=== PATIENT | male | born 1930 | race African-American/Black ===

== ENCOUNTER 2018-04-09 08:25 | Inpatient (IN) | payer MEDICARE ==
[~2018-04-09] VITALS: Ht 177.8 cm; Wt 83.1 kg
[2018-04-09] VITALS (23 sets, daily range): BP systolic 72–120; BP diastolic 28–50
[2018-04-09] MEDS ORDERED: FINA1TAB18 PO (08:33)
[2018-04-09] MEDS ORDERED: AMLO2.5T45 PO (08:33)
[2018-04-09] MEDS ORDERED: ATOR10TA69 PO (08:33)
[2018-04-09] MEDS ORDERED: LEVO25TA7 PO (08:33)
[2018-04-09] MEDS ORDERED: LABE100T5 PO (08:33)
[2018-04-09] MEDS ORDERED: SODIUM CHLORIDE 0.9% 500 ML IV ONE ×2 (09:08→10:14)
[2018-04-09] MEDS ORDERED: VANCOMYCIN 1 G PREMIX 200 ML IV ONE (11:00)
[2018-04-09] MEDS ORDERED: PIPERACILLIN/TAZ 3.375G PREMIX 50 ML IV ONE (11:00)
[2018-04-09 11:26] LABS: HEMOGLOBIN. 8.8 g/dL (14.0-18.0); MEAN CORPUSCULAR HEMOGLOBIN 30.2 pg (28.0-32.0); MEAN CORPUSCULAR VOLUME 95.9 fL (80.0-94.0); MEAN PLATELET VOLUME 8.1 fl (7.4-10.4); PLATELET 355 x1000/uL (130-400); RED BLOOD CELL COUNT 2.92 mill/uL (4.7-6.1); RED CELL DISTRIBUTION WIDTH 21.9 % (11.6-14.6)
[2018-04-09 11:37] LABS: CHLORIDE 99 mEq/L (98-107)
[2018-04-09 12:13] LABS: PLATELET ESTIMATE NORMAL
[2018-04-09] MEDS ORDERED: NOREPINEPHRINE 4 MG in DEXT 5% WATER 246 ML IV ONE (13:15)
[2018-04-09] MEDS ORDERED: NOREPINEPHRINE 4 MG in DEXT 5% WATER 246 ML IV NR (13:30)
[2018-04-09] MEDS: PANTOPRAZOLE SODIUM 40 MG/VIAL IV SCH (17:21)
[2018-04-09] MEDS ORDERED: PIPERACILLIN/TAZ 3.375G PREMIX 50 ML IV SCH (21:15)
[2018-04-09] MEDS: DEXT 5% WATER 500 ML IV SCH (21:32)
[2018-04-09] MEDS: NOREPINEPHRINE 32 MG in DEXT 5% WATER 468 ML IV PRN (22:18)
[2018-04-09] MEDS: PIPERACILLIN/TAZ 2.25G PREMIX 50 ML IV SCH (23:45)
[2018-04-09] MEDS: MORPHINE SULFATE 4 MG/ML CPJ (NOT FOR IM USE) IV PRN (23:55)
[2018-04-10] VITALS (83 sets, daily range): BP systolic 78–171; BP diastolic 27–124
[2018-04-10] MEDS: NOREPINEPHRINE 32 MG in DEXT 5% WATER 468 ML IV PRN ×3 (01:51→22:46)
[2018-04-10] MEDS: MORPHINE SULFATE 4 MG/ML CPJ (NOT FOR IM USE) IV PRN ×4 (05:00→22:48)
[2018-04-10 07:49] LABS: HEMATOCRIT. 24.2 % (42.0-52.0); HEMOGLOBIN. 7.8 g/dL (14.0-18.0); MEAN CORPUSCULAR HEMOGLOBIN 30.5 pg (28.0-32.0); MEAN CORPUSCULAR VOLUME 94.8 fL (80.0-94.0); MEAN PLATELET VOLUME 8.3 fl (7.4-10.4); PLATELET 338 x1000/uL (130-400); RED BLOOD CELL COUNT 2.56 mill/uL (4.7-6.1); RED CELL DISTRIBUTION WIDTH 21.5 % (11.6-14.6)
[2018-04-10] MEDS: LEVOTHYROXINE SODIUM 25MCG TABLET PO SCH (08:53)
[2018-04-10] MEDS: PANTOPRAZOLE SODIUM 40 MG/VIAL IV SCH (08:53)
[2018-04-10] MEDS ORDERED: LIDOCAINE HCL/EPINEPHRINE 1%-EPI 1:100,000 20 ML VIAL INFIL NR (09:15)
[2018-04-10 09:54] LABS: PLATELET ESTIMATE NORMAL
[2018-04-10] MEDS ORDERED: VANCOMYCIN 500 MG PREMIX 100 ML IV SCH (10:00)
[2018-04-10] MEDS: PIPERACILLIN/TAZ 2.25G PREMIX 50 ML IV SCH ×2 (10:41→23:15)
[2018-04-10] MEDS: DEXT 5% WATER 500 ML IV SCH (10:48)
[2018-04-10] MEDS: BLOOD SUGAR DIAGNOSTIC STRIP TEST SCH ×3 (12:50→21:00)
[2018-04-10] MEDS: INSULIN LISPRO 100 UNITS/ML SUBCUT SCH ×3 (13:20→21:00)
[2018-04-11] VITALS (74 sets, daily range): BP systolic 83–145; BP diastolic 27–95
[2018-04-11] MEDS: DEXT 5% WATER 500 ML IV SCH ×2 (04:53→22:00)
[2018-04-11] MEDS: MORPHINE SULFATE 4 MG/ML CPJ (NOT FOR IM USE) IV PRN (04:53)
[2018-04-11 06:04] LABS: HEMOGLOBIN. 7.8 g/dL (14.0-18.0); MEAN CORPUSCULAR HEMOGLOBIN 30.3 pg (28.0-32.0); MEAN CORPUSCULAR VOLUME 93.2 fL (80.0-94.0); MEAN PLATELET VOLUME 8.7 fl (7.4-10.4); PLATELET 329 x1000/uL (130-400); RED BLOOD CELL COUNT 2.58 mill/uL (4.7-6.1)
[2018-04-11] MEDS: PIPERACILLIN/TAZ 2.25G PREMIX 50 ML IV SCH ×3 (06:37→21:58)
[2018-04-11] MEDS: INSULIN LISPRO 100 UNITS/ML SUBCUT SCH ×6 (06:44→21:00)
[2018-04-11] MEDS: NOREPINEPHRINE 32 MG in DEXT 5% WATER 468 ML IV PRN (06:56)
[2018-04-11] MEDS: BLOOD SUGAR DIAGNOSTIC STRIP TEST SCH ×5 (08:07→21:39)
[2018-04-11] MEDS: PANTOPRAZOLE SODIUM 40 MG/VIAL IV SCH (08:34)
[2018-04-11] MEDS: LEVOTHYROXINE SODIUM 25MCG TABLET PO SCH (08:34)
[2018-04-11] MEDS: SODIUM HYPOCHLORITE 0.125% 473ML SOLUTION TOP SCH (11:47)
[2018-04-11 13:57] LABS: PLATELET ESTIMATE NORMAL
[2018-04-11] MEDS: EPOETIN ALFA 10000UNITS/ML VIAL SUBCUT SCH (21:48)
[2018-04-12] VITALS (55 sets, daily range): BP systolic 95–140; BP diastolic 37–99
[2018-04-12] MEDS: PIPERACILLIN/TAZ 2.25G PREMIX 50 ML IV SCH (05:19)
[2018-04-12] MEDS: LEVOTHYROXINE SODIUM 25MCG TABLET PO SCH (05:52)
[2018-04-12] MEDS: BLOOD SUGAR DIAGNOSTIC STRIP TEST SCH ×4 (06:02→20:42)
[2018-04-12 06:09] LABS: BASOPHILS % 0.7 % (0.0-2.0); EOSINOPHILS % 3.4 % (0.0-5.0); HEMATOCRIT. 24.7 % (42.0-52.0); HEMOGLOBIN. 8.1 g/dL (14.0-18.0); LYMPHOCYTES % 7.5 % (20.0-50.0); MEAN CORPUSCULAR HEMOGLOBIN 30.8 pg (28.0-32.0); MEAN CORPUSCULAR VOLUME 94.2 fL (80.0-94.0); MEAN PLATELET VOLUME 8.2 fl (7.4-10.4); MONOCYTES % 6.8 % (2.0-8.0); NEUTROPHILS % 81.6 % (40.0-76.0); PLATELET 288 x1000/uL (130-400); RED BLOOD CELL COUNT 2.63 mill/uL (4.7-6.1)
[2018-04-12 06:55] LABS: PHOSPHORUS 4.2 mg/dL (2.5-4.9)
[2018-04-12] MEDS: INSULIN LISPRO 100 UNITS/ML SUBCUT SCH ×4 (07:43→20:42)
[2018-04-12] MEDS: MORPHINE SULFATE 4 MG/ML CPJ (NOT FOR IM USE) IV PRN ×2 (07:52→18:40)
[2018-04-12] MEDS: NOREPINEPHRINE 32 MG in DEXT 5% WATER 468 ML IV PRN (08:41)
[2018-04-12] MEDS: PANTOPRAZOLE SODIUM 40 MG/VIAL IV SCH (09:37)
[2018-04-12] MEDS: FOLIC ACID/VITAMIN B COMP W-C TABLET PO SCH (09:41)
[2018-04-12] MEDS: SODIUM CHLORIDE 0.45% 1,000 ML IV SCH (12:10)
[2018-04-12] MEDS ORDERED: VANCOMYCIN 750 MG PREMIX 150 ML IV SCH (14:00)
[2018-04-12] MEDS: DEXT 5% WATER 500 ML IV SCH ×2 (14:40→15:21)
[2018-04-12] MEDS: MEROPENEM 500 MG in SODIUM CHLORIDE 0.9% 50 ML IV SCH (15:17)
[2018-04-13] VITALS (28 sets, daily range): BP systolic 103–138; BP diastolic 41–61
[2018-04-13] MEDS: MORPHINE SULFATE 4 MG/ML CPJ (NOT FOR IM USE) IV PRN ×2 (03:30→16:45)
[2018-04-13] MEDS: DEXTROSE 50% WATER 50ML SYRINGE IV PRN ×2 (05:54→17:32)
[2018-04-13 06:07] LABS: HEMATOCRIT. 25.3 % (42.0-52.0); MEAN CORPUSCULAR HEMOGLOBIN 30.4 pg (28.0-32.0); MEAN CORPUSCULAR VOLUME 96.2 fL (80.0-94.0); MEAN PLATELET VOLUME 8.2 fl (7.4-10.4); PLATELET 265 x1000/uL (130-400); RED BLOOD CELL COUNT 2.63 mill/uL (4.7-6.1); RED CELL DISTRIBUTION WIDTH 20.7 % (11.6-14.6)
[2018-04-13] MEDS: BLOOD SUGAR DIAGNOSTIC STRIP TEST SCH ×4 (07:50→21:00)
[2018-04-13] MEDS: INSULIN LISPRO 100 UNITS/ML SUBCUT SCH ×4 (07:50→21:00)
[2018-04-13] MEDS: LEVOTHYROXINE SODIUM 25MCG TABLET PO SCH (09:13)
[2018-04-13] MEDS: FOLIC ACID/VITAMIN B COMP W-C TABLET PO SCH (09:13)
[2018-04-13] MEDS: PANTOPRAZOLE SODIUM 40 MG/VIAL IV SCH (09:13)
[2018-04-13] MEDS: DEXT 5% WATER 500 ML IV SCH (09:14)
[2018-04-13 12:28] LABS: PLATELET ESTIMATE NORMAL
[2018-04-13] MEDS: SODIUM HYPOCHLORITE 0.125% 473ML SOLUTION TOP SCH (14:02)
[2018-04-13] MEDS: MEROPENEM 500 MG in SODIUM CHLORIDE 0.9% 50 ML IV SCH (14:02)
[2018-04-13] MEDS: SODIUM CHLORIDE 0.45% 1,000 ML IV SCH (14:06)
[2018-04-14] VITALS (11 sets, daily range): BP systolic 131–161; BP diastolic 50–68
[2018-04-14] MEDS: DEXT 5% WATER 500 ML IV SCH (00:21)
[2018-04-14] MEDS: EPOETIN ALFA 10000UNITS/ML VIAL SUBCUT SCH (00:32)
[2018-04-14 06:12] LABS: BASOPHILS % 0.7 % (0.0-2.0); EOSINOPHILS % 4.7 % (0.0-5.0); HEMATOCRIT. 26.8 % (42.0-52.0); HEMOGLOBIN. 8.3 g/dL (14.0-18.0); LYMPHOCYTES % 9.7 % (20.0-50.0); MEAN CORPUSCULAR HEMOGLOBIN 29.9 pg (28.0-32.0); MEAN CORPUSCULAR VOLUME 96.3 fL (80.0-94.0); MEAN PLATELET VOLUME 8.1 fl (7.4-10.4); MONOCYTES % 9.6 % (2.0-8.0); NEUTROPHILS % 75.3 % (40.0-76.0); PLATELET 261 x1000/uL (130-400); RED BLOOD CELL COUNT 2.78 mill/uL (4.7-6.1); RED CELL DISTRIBUTION WIDTH 20.8 % (11.6-14.6)
[2018-04-14] MEDS: BLOOD SUGAR DIAGNOSTIC STRIP TEST SCH ×3 (07:30→17:20)
[2018-04-14] MEDS: INSULIN LISPRO 100 UNITS/ML SUBCUT SCH ×3 (07:30→17:20)
[2018-04-14] MEDS: PANTOPRAZOLE SODIUM 40 MG/VIAL IV SCH (09:17)
[2018-04-14] MEDS: SODIUM CHLORIDE 0.45% 1,000 ML IV SCH (09:17)
[2018-04-14] MEDS: LEVOTHYROXINE SODIUM 25MCG TABLET PO SCH (09:17)
[2018-04-14] MEDS: FOLIC ACID/VITAMIN B COMP W-C TABLET PO SCH (09:17)
[2018-04-14] MEDS: MEROPENEM 500 MG in SODIUM CHLORIDE 0.9% 50 ML IV SCH (15:21)
[2018-04-15] VITALS (12 sets, daily range): BP systolic 116–173; BP diastolic 42–63
[2018-04-15 06:20] LABS: HEMATOCRIT. 26.1 % (42.0-52.0); HEMOGLOBIN. 8.4 g/dL (14.0-18.0); MEAN CORPUSCULAR HEMOGLOBIN 30.9 pg (28.0-32.0); MEAN CORPUSCULAR VOLUME 96.5 fL (80.0-94.0); MEAN PLATELET VOLUME 8.2 fl (7.4-10.4); PLATELET 255 x1000/uL (130-400); RED BLOOD CELL COUNT 2.71 mill/uL (4.7-6.1); RED CELL DISTRIBUTION WIDTH 20.9 % (11.6-14.6)
[2018-04-15 06:32] LABS: AMMONIA 30 uMol/L (<32)
[2018-04-15 07:17] LABS: CHLORIDE 103 mEq/L (98-107)
[2018-04-15] MEDS: BLOOD SUGAR DIAGNOSTIC STRIP TEST SCH ×5 (07:30→21:24)
[2018-04-15] MEDS: INSULIN LISPRO 100 UNITS/ML SUBCUT SCH ×4 (07:30→21:00)
[2018-04-15] MEDS: DEXTROSE 50% WATER 50ML SYRINGE IV PRN (07:52)
[2018-04-15] MEDS: LEVOTHYROXINE SODIUM 25MCG TABLET PO SCH (08:30)
[2018-04-15] MEDS: FOLIC ACID/VITAMIN B COMP W-C TABLET PO SCH (08:30)
[2018-04-15] MEDS: PANTOPRAZOLE SODIUM 40 MG/VIAL IV SCH (08:30)
[2018-04-15 09:49] LABS: NUCLEATED RED BLOOD CELLS 1 /100 WBC; PLATELET ESTIMATE NORMAL
[2018-04-15] MEDS: MEROPENEM 500 MG in SODIUM CHLORIDE 0.9% 50 ML IV SCH (16:45)
[2018-04-15] MEDS: EPOETIN ALFA 10000UNITS/ML VIAL SUBCUT SCH (21:24)
[2018-04-16] VITALS (23 sets, daily range): BP systolic 122–156; BP diastolic 42–72
[2018-04-16 07:20] LABS: BASOPHILS % 0.6 % (0.0-2.0); EOSINOPHILS % 3.4 % (0.0-5.0); HEMATOCRIT. 22.6 % (42.0-52.0); HEMOGLOBIN. 7.3 g/dL (14.0-18.0); LYMPHOCYTES % 8.3 % (20.0-50.0); MEAN CORPUSCULAR HEMOGLOBIN 30.5 pg (28.0-32.0); MEAN CORPUSCULAR VOLUME 94.4 fL (80.0-94.0); MEAN PLATELET VOLUME 8.5 fl (7.4-10.4); MONOCYTES % 6.4 % (2.0-8.0); NEUTROPHILS % 81.3 % (40.0-76.0); PLATELET 219 x1000/uL (130-400); RED CELL DISTRIBUTION WIDTH 20.2 % (11.6-14.6)
[2018-04-16] MEDS: INSULIN LISPRO 100 UNITS/ML SUBCUT SCH ×4 (07:30→21:59)
[2018-04-16] MEDS: BLOOD SUGAR DIAGNOSTIC STRIP TEST SCH ×4 (08:27→21:00)
[2018-04-16] MEDS: LEVOTHYROXINE SODIUM 25MCG TABLET PO SCH (08:35)
[2018-04-16] MEDS: PANTOPRAZOLE SODIUM 40 MG/VIAL IV SCH (08:38)
[2018-04-16] MEDS: FOLIC ACID/VITAMIN B COMP W-C TABLET PO SCH (08:38)
[2018-04-16] MEDS: CLOPIDOGREL 75MG TABLET PO SCH (08:38)
[2018-04-16] MEDS: ASPIRIN 81MG TABLET PO SCH (08:39)
[2018-04-16] MEDS: MEROPENEM 500 MG in SODIUM CHLORIDE 0.9% 50 ML IV SCH (15:04)
[2018-04-16] MEDS ORDERED: MORPHINE SULFATE 4 MG/ML CPJ (NOT FOR IM USE) IV PRN (19:15)
[2018-04-17] VITALS (12 sets, daily range): BP systolic 93–149; BP diastolic 34–60
[2018-04-17] MEDS: BLOOD SUGAR DIAGNOSTIC STRIP TEST SCH ×4 (06:34→20:58)
[2018-04-17] MEDS: INSULIN LISPRO 100 UNITS/ML SUBCUT SCH ×4 (06:35→20:58)
[2018-04-17] MEDS: LEVOTHYROXINE SODIUM 25MCG TABLET PO SCH (06:35)
[2018-04-17] MEDS: FOLIC ACID/VITAMIN B COMP W-C TABLET PO SCH (09:50)
[2018-04-17] MEDS: CLOPIDOGREL 75MG TABLET PO SCH (09:50)
[2018-04-17] MEDS: PANTOPRAZOLE SODIUM 40 MG/VIAL IV SCH (09:50)
[2018-04-17] MEDS: ASPIRIN 81MG TABLET PO SCH (09:50)
[2018-04-17] MEDS: MEROPENEM 500 MG in SODIUM CHLORIDE 0.9% 50 ML IV SCH (15:46)
[2018-04-18] VITALS (17 sets, daily range): BP systolic 90–157; BP diastolic 37–59
[2018-04-18] MEDS: MORPHINE SULFATE 4 MG/ML CPJ (NOT FOR IM USE) IV PRN ×2 (00:01→10:02)
[2018-04-18] MEDS: LEVOTHYROXINE SODIUM 25MCG TABLET PO SCH (06:31)
[2018-04-18] MEDS: BLOOD SUGAR DIAGNOSTIC STRIP TEST SCH ×4 (06:32→21:00)
[2018-04-18] MEDS: INSULIN LISPRO 100 UNITS/ML SUBCUT SCH ×4 (06:32→21:00)
[2018-04-18] MEDS: CLOPIDOGREL 75MG TABLET PO SCH (09:00)
[2018-04-18] MEDS ORDERED: LIDOCAINE HCL/EPINEPHRINE 1%-EPI 1:100,000 20 ML VIAL IJ SCH (09:00)
[2018-04-18] MEDS ORDERED: LIDOCAINE HCL/EPINEPHRINE 1%-EPI 1:100,000 30 ML VIAL INFIL SCH (09:00)
[2018-04-18 09:37] LABS: BASOPHILS % 0.5 % (0.0-2.0); EOSINOPHILS % 3.1 % (0.0-5.0); HEMATOCRIT. 26.5 % (42.0-52.0); HEMOGLOBIN. 8.3 g/dL (14.0-18.0); LYMPHOCYTES % 7.9 % (20.0-50.0); MEAN CORPUSCULAR HEMOGLOBIN 29.9 pg (28.0-32.0); MEAN CORPUSCULAR VOLUME 95.1 fL (80.0-94.0); MEAN PLATELET VOLUME 8.2 fl (7.4-10.4); NEUTROPHILS % 81.5 % (40.0-76.0); PLATELET 228 x1000/uL (130-400); RED BLOOD CELL COUNT 2.78 mill/uL (4.7-6.1); RED CELL DISTRIBUTION WIDTH 19.9 % (11.6-14.6)
[2018-04-18 09:47] LABS: INR 1.2; PROTHROMBIN TIME 11.8 sec (9.1-11.1)
[2018-04-18] MEDS: PANTOPRAZOLE SODIUM 40 MG/VIAL IV SCH (10:00)
[2018-04-18] MEDS: FOLIC ACID/VITAMIN B COMP W-C TABLET PO SCH (10:01)
[2018-04-18] MEDS: ASPIRIN 81MG TABLET PO SCH (10:01)
[2018-04-18] MEDS: SODIUM HYPOCHLORITE 0.125% 473ML SOLUTION TOP SCH (13:00)
[2018-04-18] MEDS ORDERED: IPRATROPIUM/ALBUTEROL 0.5-3(2.5)MG/3ML NEB HHN PRN (14:00)
[2018-04-18] MEDS ORDERED: CEFAZOLIN 1000MG PREMIX 0 ML IV ONE (15:53)
[2018-04-18] MEDS: MEROPENEM 500 MG in SODIUM CHLORIDE 0.9% 50 ML IV SCH (18:58)
[2018-04-18] MEDS: GUAIFENESIN 200MG/10ML SUGAR FREE UDC PO PRN (22:33)
[2018-04-19] VITALS (9 sets, daily range): BP systolic 135–157; BP diastolic 42–87
[2018-04-19] MEDS: INSULIN LISPRO 100 UNITS/ML SUBCUT SCH ×4 (07:20→20:17)
[2018-04-19 07:51] LABS: BASOPHILS % 0.7 % (0.0-2.0); EOSINOPHILS % 2.7 % (0.0-5.0); HEMATOCRIT. 27.5 % (42.0-52.0); HEMOGLOBIN. 8.6 g/dL (14.0-18.0); LYMPHOCYTES % 9.7 % (20.0-50.0); MEAN CORPUSCULAR HEMOGLOBIN 30.1 pg (28.0-32.0); MEAN CORPUSCULAR VOLUME 95.7 fL (80.0-94.0); MEAN PLATELET VOLUME 8.4 fl (7.4-10.4); MONOCYTES % 7.8 % (2.0-8.0); NEUTROPHILS % 79.1 % (40.0-76.0); PLATELET 236 x1000/uL (130-400); RED BLOOD CELL COUNT 2.87 mill/uL (4.7-6.1); RED CELL DISTRIBUTION WIDTH 20.2 % (11.6-14.6)
[2018-04-19] MEDS: BLOOD SUGAR DIAGNOSTIC STRIP TEST SCH ×4 (08:11→20:17)
[2018-04-19] MEDS: PANTOPRAZOLE SODIUM 40 MG/VIAL IV SCH (08:21)
[2018-04-19] MEDS: FOLIC ACID/VITAMIN B COMP W-C TABLET PO SCH (08:21)
[2018-04-19] MEDS: CLOPIDOGREL 75MG TABLET PO SCH (08:21)
[2018-04-19] MEDS: ASPIRIN 81MG TABLET PO SCH (08:22)
[2018-04-19] MEDS: LEVOTHYROXINE SODIUM 25MCG TABLET PO SCH (08:22)
[2018-04-19] MEDS: GUAIFENESIN 200MG/10ML SUGAR FREE UDC PO PRN ×2 (08:32→17:24)
[2018-04-19] MEDS: MEROPENEM 500 MG in SODIUM CHLORIDE 0.9% 50 ML IV SCH (15:00)
[2018-04-19] MEDS: MORPHINE SULFATE 4 MG/ML CPJ (NOT FOR IM USE) IV PRN ×2 (15:38→19:55)
[2018-04-20] VITALS: BP 123/56
[2018-04-20 04:00] VITALS: BP 134/50
[2018-04-20] MEDS: BLOOD SUGAR DIAGNOSTIC STRIP TEST SCH ×4 (06:30→20:39)
[2018-04-20] MEDS: LEVOTHYROXINE SODIUM 25MCG TABLET PO SCH (06:30)
[2018-04-20] MEDS: INSULIN LISPRO 100 UNITS/ML SUBCUT SCH ×4 (07:20→20:40)
[2018-04-20 08:00] VITALS: BP 133/47
[2018-04-20] MEDS: ASPIRIN 81MG TABLET PO SCH (08:15)
[2018-04-20] MEDS: CLOPIDOGREL 75MG TABLET PO SCH (08:15)
[2018-04-20] MEDS: FOLIC ACID/VITAMIN B COMP W-C TABLET PO SCH (08:16)
[2018-04-20] MEDS: PANTOPRAZOLE SODIUM 40 MG/VIAL IV SCH (08:16)
[2018-04-20] MEDS: MORPHINE SULFATE 4 MG/ML CPJ (NOT FOR IM USE) IV PRN (08:25)
[2018-04-20 12:00] VITALS: BP 145/50
[2018-04-20] MEDS ORDERED: ACETAMINOPHEN WITH CODEINE 300/30MG TABLET PO PRN (14:00)
[2018-04-20] MEDS: SODIUM HYPOCHLORITE 0.125% 473ML SOLUTION TOP SCH (14:31)
[2018-04-20 16:00] VITALS: BP 141/52
[2018-04-20 20:00] VITALS: BP 157/54
[2018-04-20] MEDS: GUAIFENESIN 200MG/10ML SUGAR FREE UDC PO PRN (20:29)
[2018-04-21] VITALS: BP 165/56
[2018-04-21 04:00] VITALS: BP 153/52
[2018-04-21] MEDS: LEVOTHYROXINE SODIUM 25MCG TABLET PO SCH (06:19)
[2018-04-21] MEDS: INSULIN LISPRO 100 UNITS/ML SUBCUT SCH ×4 (06:26→20:42)
[2018-04-21] MEDS: BLOOD SUGAR DIAGNOSTIC STRIP TEST SCH ×4 (06:26→20:42)
[2018-04-21 06:49] LABS: EOSINOPHILS % 2.1 % (0.0-5.0); HEMATOCRIT. 27.7 % (42.0-52.0); HEMOGLOBIN. 8.8 g/dL (14.0-18.0); LYMPHOCYTES % 9.7 % (20.0-50.0); MEAN CORPUSCULAR HEMOGLOBIN 29.8 pg (28.0-32.0); MEAN PLATELET VOLUME 8.1 fl (7.4-10.4); MONOCYTES % 7.9 % (2.0-8.0); NEUTROPHILS % 79.3 % (40.0-76.0); PLATELET 254 x1000/uL (130-400); RED BLOOD CELL COUNT 2.95 mill/uL (4.7-6.1); RED CELL DISTRIBUTION WIDTH 19.5 % (11.6-14.6)
[2018-04-21 08:00] VITALS: BP 150/60
[2018-04-21 12:00] VITALS: BP 151/52
[2018-04-21] MEDS: ASPIRIN 81MG TABLET PO SCH (12:07)
[2018-04-21] MEDS: FOLIC ACID/VITAMIN B COMP W-C TABLET PO SCH (12:08)
[2018-04-21] MEDS: CLOPIDOGREL 75MG TABLET PO SCH (12:08)
[2018-04-21 16:00] VITALS: BP 143/50
[2018-04-21] MEDS: MEROPENEM 500 MG in SODIUM CHLORIDE 0.9% 50 ML IV SCH (18:42)
[2018-04-21 20:00] VITALS: BP 150/51
[2018-04-21] MEDS: EPOETIN ALFA 4000UNITS/ML VIAL SUBCUT SCH (20:42)
[2018-04-21] MEDS: EPOETIN ALFA 10000UNITS/ML VIAL SUBCUT SCH (20:42)
[2018-04-22] VITALS: BP 143/55
[2018-04-22 04:46] VITALS: BP 153/55
[2018-04-22] MEDS: GUAIFENESIN 200MG/10ML SUGAR FREE UDC PO PRN (05:04)
[2018-04-22] MEDS: LEVOTHYROXINE SODIUM 25MCG TABLET PO SCH (06:44)
[2018-04-22] MEDS: BLOOD SUGAR DIAGNOSTIC STRIP TEST SCH ×4 (06:46→21:02)
[2018-04-22] MEDS: INSULIN LISPRO 100 UNITS/ML SUBCUT SCH ×4 (06:46→21:00)
[2018-04-22 08:00] VITALS: BP 145/45
[2018-04-22] MEDS: ASPIRIN 81MG TABLET PO SCH (08:34)
[2018-04-22] MEDS: CLOPIDOGREL 75MG TABLET PO SCH (08:35)
[2018-04-22] MEDS: FOLIC ACID/VITAMIN B COMP W-C TABLET PO SCH (08:35)
[2018-04-22 12:00] VITALS: BP 138/65
[2018-04-22 16:00] VITALS: BP 153/60
[2018-04-22] MEDS: MEROPENEM 500 MG in SODIUM CHLORIDE 0.9% 50 ML IV SCH (16:27)
[2018-04-22] MEDS: SODIUM HYPOCHLORITE 0.125% 473ML SOLUTION TOP SCH (18:28)
[2018-04-22] MEDS: MEGESTROL ACETATE 400 MG/10 ML UDC PO SCH (18:28)
[2018-04-22] MEDS ORDERED: MORPHINE SULFATE 4 MG/ML CPJ (NOT FOR IM USE) IV PRN (19:15)
[2018-04-22 20:00] VITALS: BP 130/42
[2018-04-23] VITALS: BP 136/48
[2018-04-23 04:00] VITALS: BP 144/55
[2018-04-23] MEDS: GUAIFENESIN 200MG/10ML SUGAR FREE UDC PO PRN (05:01)
[2018-04-23] MEDS: BLOOD SUGAR DIAGNOSTIC STRIP TEST SCH ×4 (06:58→21:26)
[2018-04-23] MEDS: LEVOTHYROXINE SODIUM 25MCG TABLET PO SCH (07:00)
[2018-04-23 07:10] LABS: HEMATOCRIT. 23.6 % (42.0-52.0); HEMOGLOBIN. 8.4 g/dL (14.0-18.0); MEAN CORPUSCULAR HEMOGLOBIN 33.4 pg (28.0-32.0); MEAN CORPUSCULAR VOLUME 94.4 fL (80.0-94.0); RED BLOOD CELL COUNT 2.51 mill/uL (4.7-6.1); RED CELL DISTRIBUTION WIDTH 19.1 % (11.6-14.6)
[2018-04-23] MEDS: INSULIN LISPRO 100 UNITS/ML SUBCUT SCH ×4 (07:20→21:00)
[2018-04-23] MEDS: ASPIRIN 81MG TABLET PO SCH (09:00)
[2018-04-23] MEDS: FOLIC ACID/VITAMIN B COMP W-C TABLET PO SCH (09:00)
[2018-04-23] MEDS: MEGESTROL ACETATE 400 MG/10 ML UDC PO SCH ×2 (09:00→18:17)
[2018-04-23] MEDS: CLOPIDOGREL 75MG TABLET PO SCH (09:00)
[2018-04-23 10:27] LABS: PLATELET ESTIMATE INCREASED
[2018-04-23 10:28] LABS: MEAN PLATELET VOLUME 9.1 fl (7.4-10.4); PLATELET 529 x1000/uL (130-400)
[2018-04-23] MEDS: MEROPENEM 500 MG in SODIUM CHLORIDE 0.9% 50 ML IV SCH (17:35)
[2018-04-23 20:00] VITALS: BP 141/51
[2018-04-23] MEDS: EPOETIN ALFA 4000UNITS/ML VIAL SUBCUT SCH (21:27)
[2018-04-23] MEDS: EPOETIN ALFA 10000UNITS/ML VIAL SUBCUT SCH (21:27)
[2018-04-24] VITALS: BP 156/63
[2018-04-24 04:00] VITALS: BP 144/70
[2018-04-24] MEDS: LEVOTHYROXINE SODIUM 25MCG TABLET PO SCH (06:36)
[2018-04-24] MEDS: BLOOD SUGAR DIAGNOSTIC STRIP TEST SCH ×4 (06:36→20:53)
[2018-04-24] MEDS: INSULIN LISPRO 100 UNITS/ML SUBCUT SCH ×4 (07:20→20:53)
[2018-04-24 08:00] VITALS: BP 139/50
[2018-04-24] MEDS: CLOPIDOGREL 75MG TABLET PO SCH (10:05)
[2018-04-24] MEDS: FOLIC ACID/VITAMIN B COMP W-C TABLET PO SCH (10:05)
[2018-04-24] MEDS: ASPIRIN 81MG TABLET PO SCH (10:05)
[2018-04-24] MEDS: MEGESTROL ACETATE 400 MG/10 ML UDC PO SCH ×2 (10:05→17:37)
[2018-04-24 12:00] VITALS: BP 154/50
[2018-04-24] MEDS: SODIUM HYPOCHLORITE 0.125% 473ML SOLUTION TOP SCH (13:00)
[2018-04-24 16:00] VITALS: BP 165/59
[2018-04-24] MEDS: MEROPENEM 500 MG in SODIUM CHLORIDE 0.9% 50 ML IV SCH (17:37)
[2018-04-24 20:00] VITALS: BP 142/48
[2018-04-24] MEDS: GUAIFENESIN 200MG/10ML SUGAR FREE UDC PO PRN (20:52)
[2018-04-25] VITALS: BP 146/58
[2018-04-25] MEDS: GUAIFENESIN 200MG/10ML SUGAR FREE UDC PO PRN (03:46)
[2018-04-25 04:00] VITALS: BP 153/55
[2018-04-25] MEDS: LEVOTHYROXINE SODIUM 25MCG TABLET PO SCH (06:41)
[2018-04-25] MEDS: BLOOD SUGAR DIAGNOSTIC STRIP TEST SCH ×2 (06:59→12:32)
[2018-04-25] MEDS: INSULIN LISPRO 100 UNITS/ML SUBCUT SCH ×2 (07:20→12:20)
[2018-04-25 07:40] LABS: BASOPHILS % 0.8 % (0.0-2.0); EOSINOPHILS % 3.1 % (0.0-5.0); HEMATOCRIT. 26.3 % (42.0-52.0); HEMOGLOBIN. 8.4 g/dL (14.0-18.0); LYMPHOCYTES % 13.4 % (20.0-50.0); MEAN CORPUSCULAR HEMOGLOBIN 29.8 pg (28.0-32.0); MEAN CORPUSCULAR VOLUME 93.8 fL (80.0-94.0); MEAN PLATELET VOLUME 8.5 fl (7.4-10.4); MONOCYTES % 9.2 % (2.0-8.0); NEUTROPHILS % 73.5 % (40.0-76.0); PLATELET 254 x1000/uL (130-400); RED BLOOD CELL COUNT 2.81 mill/uL (4.7-6.1); RED CELL DISTRIBUTION WIDTH 18.4 % (11.6-14.6)
[2018-04-25 08:00] VITALS: BP 137/46
[2018-04-25] MEDS: ASPIRIN 81MG TABLET PO SCH (08:16)
[2018-04-25] MEDS: MEGESTROL ACETATE 400 MG/10 ML UDC PO SCH (08:16)
[2018-04-25] MEDS: CLOPIDOGREL 75MG TABLET PO SCH (08:16)
[2018-04-25] MEDS: FOLIC ACID/VITAMIN B COMP W-C TABLET PO SCH (08:16)
[2018-04-25] MEDS: SODIUM HYPOCHLORITE 0.125% 473ML SOLUTION TOP SCH (08:22)
[2018-04-25 12:00] VITALS: BP 122/40
[2018-04-25 16:28] VITALS: BP 137/46
== END 2018-04-25 16:40 | DRG 853 ==
LOC: ER 08:25 → EDBEDREQSVC 12:46 → EDBEDREQ 12:46 → EDBEDREQSVC 13:12 → CVICU 13:19 → ENRESERV 13:19 → CVICU 04-11 10:00 → 5EST 04-13 18:20 → 6EST 04-19 06:40
PROVIDERS: ADMIT Internal Medicine; ATTEND Internal Medicine
PROC: 06HM33Z Insertion of Infusion Device into Right Femoral Vein, Percutaneous Approach (ICD-10-PCS; 2018-04-09)
PROC: 0JB70ZZ Excision of Back Subcutaneous Tissue and Fascia, Open Approach (ICD-10-PCS; principal; 2018-04-10)
PROC: 5A1D70Z Performance of Urinary Filtration, Intermittent, Less than 6 Hours Per Day (ICD-10-PCS; 2018-04-11)
PROC: 5A1D70Z Performance of Urinary Filtration, Intermittent, Less than 6 Hours Per Day (ICD-10-PCS; 2018-04-13)
PROC: 5A1D70Z Performance of Urinary Filtration, Intermittent, Less than 6 Hours Per Day (ICD-10-PCS; 2018-04-15)
PROC: 30233N1 Transfusion of Nonautologous Red Blood Cells into Peripheral Vein, Percutaneous Approach (ICD-10-PCS; 2018-04-16)
PROC: 0JB70ZZ Excision of Back Subcutaneous Tissue and Fascia, Open Approach (ICD-10-PCS; 2018-04-18)
PROC: 5A1D70Z Performance of Urinary Filtration, Intermittent, Less than 6 Hours Per Day (ICD-10-PCS; 2018-04-18)
PROC: 5A1D70Z Performance of Urinary Filtration, Intermittent, Less than 6 Hours Per Day (ICD-10-PCS; 2018-04-20)
PROC: 5A1D70Z Performance of Urinary Filtration, Intermittent, Less than 6 Hours Per Day (ICD-10-PCS; 2018-04-22)
PROC: 0QB10ZZ Excision of Sacrum, Open Approach (ICD-10-PCS; 2018-04-25)
PROC: 5A1D70Z Performance of Urinary Filtration, Intermittent, Less than 6 Hours Per Day (ICD-10-PCS; 2018-04-25)
DX: A41.9 Sepsis, unspecified organism (principal); E43 Unspecified severe protein-calorie malnutrition; L89.154 Pressure ulcer of sacral region, stage 4; N18.6 End stage renal disease; R65.21 Severe sepsis with septic shock; I13.11 Hypertensive heart and chronic kidney disease without heart failure, with stage 5 chronic kidney disease, or end stage renal disease; G93.40 Encephalopathy, unspecified; E11.52 Type 2 diabetes mellitus with diabetic peripheral angiopathy with gangrene; F03.90 Unspecified dementia, unspecified severity, without behavioral disturbance, psychotic disturbance, mood disturbance, and anxiety; E03.9 Hypothyroidism, unspecified; E11.22 Type 2 diabetes mellitus with diabetic chronic kidney disease; E11.21 Type 2 diabetes mellitus with diabetic nephropathy; B96.1 Klebsiella pneumoniae [K. pneumoniae] as the cause of diseases classified elsewhere; I95.3 Hypotension of hemodialysis; D63.8 Anemia in other chronic diseases classified elsewhere; E11.649 Type 2 diabetes mellitus with hypoglycemia without coma; I25.10 Atherosclerotic heart disease of native coronary artery without angina pectoris; M10.9 Gout, unspecified; I95.9 Hypotension, unspecified; M89.9 Disorder of bone, unspecified; F17.200 Nicotine dependence, unspecified, uncomplicated; N40.0 Benign prostatic hyperplasia without lower urinary tract symptoms; S90.829A Blister (nonthermal), unspecified foot, initial encounter; Z82.49 Family history of ischemic heart disease and other diseases of the circulatory system; Z95.0 Presence of cardiac pacemaker; Z95.1 Presence of aortocoronary bypass graft; Z74.01 Bed confinement status; Z68.26 Body mass index [BMI] 26.0-26.9, adult; Z79.899 Other long term (current) drug therapy
CPT/HCPCS: 36415; 36556; 71045; 80048; 80202; 82140; 82330; 82962; 83605; 83880; 84100; 84134; 84484; 85651; 86140; 86850; 86900; 86920; 87070; 87075; 87077; 87186; 92610; 93005; 93923; 93970; 96365; 96366; 96367; 99291; A6261; C9113; J0690; J0885; J1815; J2185; J2270; J2543; J3370; J3490; J7030; J7040; J7050; J7060; P9016